=== PATIENT | female | born 1965 | race Caucasian/White ===

== ENCOUNTER 2019-11-04 21:49 | Emergency (ER) | payer MEDICARE, OTHER ==
[~2019-11-04] VITALS: Ht 147.3 cm; Wt 47.6 kg
[~2019-11-04 21:49] MED LIST: ACET-1156 PO; ATOR10TA; CARB200T4 PO; CLIN300C8 PO; DOCU100C8 PO; ERGO8288; FLUT1SPR21; KETO2CRE4 TOP; LACO150T PO; LEVE750T15; MEGE1SUS5 PO; MULT-20 PO; NAPR500T31 PO; NUTR-709; OME20T PO; POTA10TA79 PO; RISP0.2512 PO; SACC250C PO; TORS10TA12 PO; ZONI100C16 PO; [UNRECOGNIZED DRUG - CODE]; [UNRECOGNIZED DRUG - CODE]; [UNRECOGNIZED DRUG - CODE]; [UNRECOGNIZED DRUG - CODE] EX; [UNRECOGNIZED DRUG - CODE] OR
[2019-11-05 01:48] VITALS: BP 128/80
== END 2019-11-05 02:39 | disposition home or self-care (01) ==
LOC: ER 21:51
DX: S00.12XA Contusion of left eyelid and periocular area, initial encounter (principal); K21.9 Gastro-esophageal reflux disease without esophagitis; E78.5 Hyperlipidemia, unspecified; Z79.899 Other long term (current) drug therapy; Y04.0XXA Assault by unarmed brawl or fight, initial encounter; Y93.89 Activity, other specified; Y92.098 Other place in other non-institutional residence as the place of occurrence of the external cause; Y99.8 Other external cause status

== ENCOUNTER → 2022-05-10 | Outpatient (CLI) | payer MEDICARE, OTHER ==
[~2022-05-10] MED LIST changes: +DOCU100C10 PO; -DOCU100C8 PO; +POTA10TA32 PO; -POTA10TA79 PO; -ZONI100C16 PO; +ZONI100C18 PO
[2022-05-10 10:55] LABS: Basophils # (auto) 0 10 ^3/uL (0-0.2); Basophils % (auto) 0.6 % (0.0-2.0); Eosinophils # (auto) 0.1 10 ^3/uL (0-0.8); Eosinophils % (auto) 2.5 % (0.0-7.0); Hematocrit 46.3 % (36.0-46.0); Hemoglobin 14.9 g/dL (12.2-16.2); Lymphocytes # (auto) 1.2 10 ^3/uL (0.4-5.4); Mean Corpuscular Hemoglobin 31.4 pg (28.0-32.0); Mean Corpuscular Hgb Conc. 32.2 g/dL (32.0-36.0); Mean Corpuscular Volume 97.7 fL (80.0-100.0); Monocytes # (auto) 0.4 10 ^3/uL (0-1.3); Monocytes % (auto) 8.8 % (0.0-12.0); Neutrophils # (auto) 2.4 10 ^3/uL (1.6-8.6); Neutrophils % (auto) 59.1 % (37.0-80.0); Red Blood Cells 4.74 10^6/uL (4.0-5.20); Red Cell Distribution Width 13.5 % (11.8-14.3); White Blood Cell 4.1 10^3/uL (4.4-10.8)
[2022-05-10 11:46] LABS: Albumin 3.6 g/dL (3.4-5.0); Calcium 8.8 mg/dL (8.5-10.1); Potassium 3.8 mmol/L (3.5-5.1)
[2022-05-10 11:49] LABS: BUN/Creatinine Ratio 30.4; Bilirubin, Total 0.2 mg/dL (0.2-1.0); Total Protein 8.1 g/dL (6.4-8.2)
== END | disposition home or self-care (01) ==
LOC: LAB 10:36
PROVIDERS: ATTEND Internal Medicine Gastroenterology
DX: R10.9 Unspecified abdominal pain (principal); R19.4 Change in bowel habit
CPT/HCPCS: 36415; 80053; 85025

== ENCOUNTER 2022-12-29 11:09 | Day surgery (SDC) | payer MEDICARE, OTHER ==
[2022-12-28 14:42] LABS: Basophils # (auto) 0 10 ^3/uL (0-0.2); Basophils % (auto) 0.6 % (0.0-2.0); Eosinophils # (auto) 0.1 10 ^3/uL (0-0.8); Eosinophils % (auto) 2.7 % (0.0-7.0); Hematocrit 46.2 % (36.0-46.0); Hemoglobin 14.9 g/dL (12.2-16.2); Lymphocytes # (auto) 1.7 10 ^3/uL (0.4-5.4); Lymphocytes % (auto) 36.3 % (10.0-50.0); Mean Corpuscular Hgb Conc. 32.3 g/dL (32.0-36.0); Mean Corpuscular Volume 99.2 fL (80.0-100.0); Monocytes # (auto) 0.5 10 ^3/uL (0-1.3); Monocytes % (auto) 10.6 % (0.0-12.0); Neutrophils # (auto) 2.3 10 ^3/uL (1.6-8.6); Neutrophils % (auto) 49.8 % (37.0-80.0); Nucleated Red Blood Cells % 0.1 %; Red Blood Cells 4.65 10^6/uL (4.0-5.20); Red Cell Distribution Width 13.8 % (11.8-14.3); White Blood Cell 4.6 10^3/uL (4.4-10.8)
[2022-12-28 15:03] LABS: Albumin 3.3 g/dL (3.4-5.0); Calcium 8.9 mg/dL (8.5-10.1); Potassium 3.6 mmol/L (3.5-5.1)
[2022-12-28 15:05] LABS: INR 1.02 (0.9-1.15); Partial Thromboplastin Time 27.1 sec (24.6-33.4)
[2022-12-28 15:06] LABS: BUN/Creatinine Ratio 30.2 (10.0-20.0); Bilirubin, Total 0.1 mg/dL (0.2-1.0); Total Protein 7.7 g/dL (6.4-8.2)
[~2022-12-29] VITALS: Ht 170.2 cm; Wt 59.0 kg
[~2022-12-29 11:09] MED LIST changes: -ATOR10TA; +ATOR20TA50 PO; -CLIN300C8 PO; -DOCU100C10 PO; +DOCU283E2 PR; -ERGO8288; -LACO150T PO; +LACO200T PO; -MEGE1SUS5 PO; -NUTR-709; +OYST500T48 OR; +SULF800T8 PO; -[UNRECOGNIZED DRUG - CODE]; +[UNRECOGNIZED DRUG - CODE] OR
[2022-12-29] MEDS ORDERED: KETAMINE HCL 10 ML ONE (13:49)
[2022-12-29] MEDS ORDERED: DexAMETHasone SOD PHOS 10MG/1ML VIAL INJ ONE (13:49)
[2022-12-29] MEDS ORDERED: PROPOFOL 10 MG/ML 20 ML IV ONE (13:49)
[2022-12-29] MEDS ORDERED: MIDAZOLAM HCL 2MG/2ML 2ml VIAL (1mg/ml) ONE (13:49)
[2022-12-29 15:44] VITALS: BP 121/71
== END 2022-12-29 15:55 | disposition home or self-care (01) ==
LOC: GI 11:09
PROVIDERS: ATTEND Internal Medicine Gastroenterology
DX: K62.5 Hemorrhage of anus and rectum (principal); K63.89 Other specified diseases of intestine; K64.8 Other hemorrhoids; E78.5 Hyperlipidemia, unspecified; K21.9 Gastro-esophageal reflux disease without esophagitis; Z79.899 Other long term (current) drug therapy
CPT/HCPCS: 36415; 45380; 80053; 85025; 85610; 85730; 88305; 88342; J1100; J2250; J2704; J7030

== ENCOUNTER 2023-04-20 16:01 | Inpatient (IN) | payer MEDICARE, OTHER ==
[~2023-04-20] VITALS: Ht 152.4 cm; Wt 74.5 kg
[~2023-04-20 16:01] MED LIST changes: -ACET-1156 PO; +ACET-1881 PO; +NAPR-746 PO; -NAPR500T31 PO; +OYST1TAB OR; -OYST500T48 OR; +POTA-228 PO; -POTA10TA32 PO; +SULF1TAB75 PO; -SULF800T8 PO
[2023-04-20 16:32] VITALS: PULSE 66; RESP 15; O2SAT 94
[2023-04-20 17:11] LABS: Albumin 3.1 g/dL (3.4-5.0); Calcium 8.7 mg/dL (8.5-10.1); Magnesium 2.5 mg/dL (1.6-2.6); Potassium 4.2 mmol/L (3.5-5.1)
[2023-04-20 17:13] LABS: Basophils # (auto) 0 10 ^3/uL (0-0.2); Basophils % (auto) 0.5 % (0.0-2.0); Eosinophils # (auto) 0.2 10 ^3/uL (0-0.8); Eosinophils % (auto) 4.3 % (0.0-7.0); Hemoglobin 14.5 g/dL (12.2-16.2); Lymphocytes # (auto) 1.4 10 ^3/uL (0.4-5.4); Lymphocytes % (auto) 35.3 % (10.0-50.0); Mean Corpuscular Hemoglobin 31.9 pg (28.0-32.0); Mean Corpuscular Hgb Conc. 32.2 g/dL (32.0-36.0); Mean Corpuscular Volume 98.8 fL (80.0-100.0); Monocytes # (auto) 0.4 10 ^3/uL (0-1.3); Monocytes % (auto) 10.5 % (0.0-12.0); Neutrophils % (auto) 49.4 % (37.0-80.0); Nucleated Red Blood Cells % 0.1 %; Red Blood Cells 4.56 10^6/uL (4.0-5.20); Red Cell Distribution Width 14.1 % (11.8-14.3)
[2023-04-20 17:14] LABS: BUN/Creatinine Ratio 27.3 (10.0-20.0); Bilirubin, Total 0.2 mg/dL (0.2-1.0); Total Protein 7.4 g/dL (6.4-8.2)
[2023-04-20 17:26] LABS: Urine Amorphous Crystal FEW /hpf (None Seen); Urine Bacteria FEW /hpf (None Seen); Urine Blood TRACE /uL (Negative); Urine Budding Yeast MODERATE /hpf (None Seen); Urine Clarity CLOUDY (Clear); Urine Color Yellow (Yellow); Urine Protein, UAD Negative (Negative); Urine Specific Gravity 1.015 (1.001-1.035); Urine Urobilinogen Normal (Negative); Urine WBC 41 /hpf (0 - 5); Urine WBC Clumps PRESENT /hpf (None Seen)
[2023-04-20] MEDS ORDERED: levoFLOXacin 750MG 150 ML IV ONE (18:00)
[2023-04-20 19:45] VITALS: PULSE 65; RESP 12; O2SAT 94
[2023-04-20] MEDS ORDERED: levoFLOXacin 250 MG TAB PO ONE (20:15)
[2023-04-20] MEDS ORDERED: ACETAMINOPHEN 325 MG TAB PO ONE (20:30)
[2023-04-20] MEDS ORDERED: DOCUSATE SOD 100 MG CAP PO PRN (21:00)
[2023-04-20] MEDS ORDERED: ACETAMINOPHEN 325 MG TAB PO PRN (21:00)
[2023-04-20] MEDS ORDERED: ONDANSETRON HCL 4 MG/2 ML VIAL IV PRN (21:00)
[2023-04-20] MEDS ORDERED: HYDROcodone-ACET 5/325MG TAB PO PRN (21:00)
[2023-04-20] MEDS ORDERED: ALBUTEROL SULF 2.5 MG/0.5ML(0.5%) NEB SOLN NEB PRN (21:00)
[2023-04-20 21:18] VITALS: BP 127/88; PULSE 68; RESP 16; TEMP 97.4; O2SAT 94
[2023-04-20] MEDS ORDERED: NITROGLYCERIN 0.4 MG SL TAB SL PRN (22:00)
[2023-04-20] MEDS ORDERED: MORPHINE SULFATE INJ 2 MG/ml SYRG IV PRN (22:00)
[2023-04-20] MEDS: SODIUM CHLOR 0.9% PF (SALINE LOCK) 10ML VIAL/SYR IV SCH (22:27)
[2023-04-20] MEDS: FAMOTIDINE (10MG/ML) 2ML VL IV SCH (22:44)
[2023-04-21] VITALS (12 sets, daily range): BP systolic 116–126; BP diastolic 72–77; PULSE 69–84; RESP 12–24; TEMP 97.6–97.9; O2SAT 90–97
[2023-04-21] MEDS ORDERED: cefTRIAXone SOD 1,000 MG VL IM ONE (03:00)
[2023-04-21] MEDS: ALBUTEROL SULF 2.5 MG/0.5ML(0.5%) NEB SOLN NEB PRN ×4 (03:48→23:35)
[2023-04-21] MEDS: SODIUM CHLOR 0.9% PF (SALINE LOCK) 10ML VIAL/SYR IV SCH ×3 (06:03→22:26)
[2023-04-21 06:30] LABS: Albumin 3.1 g/dL (3.4-5.0); Calcium 8.7 mg/dL (8.5-10.1); Potassium 3.8 mmol/L (3.5-5.1)
[2023-04-21 06:36] LABS: BUN/Creatinine Ratio 19.3 (10.0-20.0); Bilirubin, Total 0.3 mg/dL (0.2-1.0); Total Protein 7.3 g/dL (6.4-8.2)
[2023-04-21 07:49] LABS: COVID19 ANTIGEN SOFIA FIA NEGATIVE (NEGATIVE)
[2023-04-21 09:06] LABS: Basophils # (auto) 0 10 ^3/uL (0-0.2); Basophils % (auto) 0.5 % (0.0-2.0); Eosinophils # (auto) 0.3 10 ^3/uL (0-0.8); Eosinophils % (auto) 6.3 % (0.0-7.0); Hematocrit 41.9 % (36.0-46.0); Hemoglobin 13.7 g/dL (12.2-16.2); Lymphocytes # (auto) 1.4 10 ^3/uL (0.4-5.4); Mean Corpuscular Hgb Conc. 32.6 g/dL (32.0-36.0); Mean Corpuscular Volume 98.1 fL (80.0-100.0); Monocytes # (auto) 0.4 10 ^3/uL (0-1.3); Monocytes % (auto) 10.6 % (0.0-12.0); Neutrophils # (auto) 1.9 10 ^3/uL (1.6-8.6); Neutrophils % (auto) 47.6 % (37.0-80.0); Nucleated Red Blood Cells % 0.4 %; Red Blood Cells 4.27 10^6/uL (4.0-5.20)
[2023-04-21] MEDS: cefTRIAXone 1GM/50ML D5W 50 ML IV SCH (09:36)
[2023-04-21] MEDS: FUROSEMIDE 20 MG/2 ML VIAL IV SCH (09:52)
[2023-04-21] MEDS: FAMOTIDINE (10MG/ML) 2ML VL IV SCH ×2 (09:52→22:25)
[2023-04-21] MEDS: DOXYCYCLINE 100MG/250ML 250 ML IV SCH ×2 (11:00→22:25)
[2023-04-21] MEDS ORDERED: MORPHINE SULFATE INJ 2 MG/ml SYRG IV PRN (13:45)
[2023-04-21] MEDS: ACETYLCYSTEINE 20%(200MG/ML) SOL 4ML NEB SCH ×2 (14:43→23:35)
[2023-04-22] VITALS (8 sets, daily range): BP systolic 110; BP diastolic 71; PULSE 70–88; RESP 17–20; TEMP 97.8; O2SAT 85–98
[2023-04-22] MEDS: SODIUM CHLOR 0.9% PF (SALINE LOCK) 10ML VIAL/SYR IV SCH ×3 (06:09→23:07)
[2023-04-22] MEDS: ACETYLCYSTEINE 20%(200MG/ML) SOL 4ML NEB SCH ×3 (07:10→22:28)
[2023-04-22] MEDS: cefTRIAXone 1GM/50ML D5W 50 ML IV SCH (08:24)
[2023-04-22] MEDS: ALBUTEROL SULF 2.5 MG/0.5ML(0.5%) NEB SOLN NEB PRN ×3 (09:49→22:28)
[2023-04-22] MEDS: LORazepam 2MG/ML-1ML VIAL IV PRN (10:04)
[2023-04-22] MEDS: FAMOTIDINE (10MG/ML) 2ML VL IV SCH ×2 (11:50→23:07)
[2023-04-22] MEDS: DOXYCYCLINE 100MG/250ML 250 ML IV SCH ×2 (11:50→23:50)
[2023-04-22] MEDS: FUROSEMIDE 20 MG/2 ML VIAL IV SCH (11:50)
[2023-04-23] VITALS (10 sets, daily range): BP systolic 97–125; BP diastolic 65–86; PULSE 62–102; RESP 14–28; TEMP 97.5–99.6; O2SAT 90–100
[2023-04-23] MEDS: SODIUM CHLOR 0.9% PF (SALINE LOCK) 10ML VIAL/SYR IV SCH ×3 (06:29→22:00)
[2023-04-23] MEDS: ALBUTEROL SULF 2.5 MG/0.5ML(0.5%) NEB SOLN NEB PRN ×2 (06:47→22:40)
[2023-04-23] MEDS: ACETYLCYSTEINE 20%(200MG/ML) SOL 4ML NEB SCH ×3 (06:47→22:40)
[2023-04-23 08:27] LABS: Folate (Folic Acid) 23.38 ng/mL (5.38-24)
[2023-04-23] MEDS: LORazepam 2MG/ML-1ML VIAL IV PRN ×3 (11:00→17:17)
[2023-04-23] MEDS: FUROSEMIDE 20 MG/2 ML VIAL IV SCH (12:08)
[2023-04-23] MEDS: FAMOTIDINE (10MG/ML) 2ML VL IV SCH ×2 (12:08→21:44)
[2023-04-23] MEDS: cefTRIAXone 1GM/50ML D5W 50 ML IV SCH (12:35)
[2023-04-23] MEDS: DOXYCYCLINE 100MG/250ML 250 ML IV SCH ×2 (13:17→22:01)
[2023-04-23 13:20] LABS: Basophils # (auto) 0 10 ^3/uL (0-0.2); Basophils % (auto) 0.3 % (0.0-2.0); Eosinophils # (auto) 0.2 10 ^3/uL (0-0.8); Eosinophils % (auto) 3.3 % (0.0-7.0); Hemoglobin 15.4 g/dL (12.2-16.2); Lymphocytes # (auto) 0.9 10 ^3/uL (0.4-5.4); Lymphocytes % (auto) 15.5 % (10.0-50.0); Mean Corpuscular Hemoglobin 32.1 pg (28.0-32.0); Mean Corpuscular Volume 100.3 fL (80.0-100.0); Monocytes # (auto) 0.5 10 ^3/uL (0-1.3); Monocytes % (auto) 8.7 % (0.0-12.0); Neutrophils % (auto) 72.2 % (37.0-80.0); Red Blood Cells 4.79 10^6/uL (4.0-5.20); White Blood Cell 5.6 10^3/uL (4.4-10.8)
[2023-04-23 13:40] LABS: Albumin 3.2 g/dL (3.4-5.0); Calcium 8.8 mg/dL (8.5-10.1); Magnesium 2.2 mg/dL (1.6-2.6); Potassium 3.7 mmol/L (3.5-5.1)
[2023-04-23 13:43] LABS: BUN/Creatinine Ratio 28.1 (10.0-20.0)
[2023-04-23 13:45] LABS: Bilirubin, Total 0.1 mg/dL (0.2-1.0); Total Protein 7.7 g/dL (6.4-8.2)
[2023-04-23] MEDS ORDERED: LORazepam 2MG/ML-1ML VIAL IV ONE (18:00)
[2023-04-23] MEDS: LACOSAMIDE 200 MG in SODIUM CHL 0.9% 100 ML IV SCH (20:27)
[2023-04-23] MEDS: carBAMazepine 200 MG TAB PO SCH (22:00)
[2023-04-23] MEDS ORDERED: PATIENTS OWN MEDICATION IV SCH (22:00)
[2023-04-24] VITALS (12 sets, daily range): BP systolic 111–127; BP diastolic 61–76; PULSE 71–88; RESP 16–20; TEMP 98.7–99.1; O2SAT 92–98
[2023-04-24] MEDS: SODIUM CHLOR 0.9% PF (SALINE LOCK) 10ML VIAL/SYR IV SCH ×3 (06:00→20:37)
[2023-04-24] MEDS: LACOSAMIDE 200 MG in SODIUM CHL 0.9% 100 ML IV SCH ×2 (07:33→20:35)
[2023-04-24] MEDS: ACETYLCYSTEINE 20%(200MG/ML) SOL 4ML NEB SCH ×2 (07:55→13:42)
[2023-04-24] MEDS: ALBUTEROL SULF 2.5 MG/0.5ML(0.5%) NEB SOLN NEB PRN ×2 (07:55→13:42)
[2023-04-24] MEDS: FUROSEMIDE 20 MG/2 ML VIAL IV SCH (09:03)
[2023-04-24] MEDS: FAMOTIDINE (10MG/ML) 2ML VL IV SCH ×2 (09:04→20:25)
[2023-04-24] MEDS: carBAMazepine 200 MG TAB PO SCH ×2 (09:26→19:45)
[2023-04-24] MEDS: cefTRIAXone 1GM/50ML D5W 50 ML IV SCH (09:48)
[2023-04-24] MEDS: DOXYCYCLINE 100MG/250ML 250 ML IV SCH ×2 (10:50→20:25)
[2023-04-25] VITALS (8 sets, daily range): BP systolic 107–132; BP diastolic 68–76; PULSE 68–90; RESP 15–20; TEMP 98.2–99.5; O2SAT 94–97
[2023-04-25 05:56] LABS: Basophils # (auto) 0 10 ^3/uL (0-0.2); Basophils % (auto) 0.3 % (0.0-2.0); Eosinophils # (auto) 0 10 ^3/uL (0-0.8); Eosinophils % (auto) 0.3 % (0.0-7.0); Hematocrit 42.3 % (36.0-46.0); Lymphocytes # (auto) 1.5 10 ^3/uL (0.4-5.4); Lymphocytes % (auto) 22.4 % (10.0-50.0); Mean Corpuscular Hemoglobin 32.2 pg (28.0-32.0); Mean Corpuscular Hgb Conc. 33.1 g/dL (32.0-36.0); Mean Corpuscular Volume 97.4 fL (80.0-100.0); Monocytes # (auto) 0.9 10 ^3/uL (0-1.3); Monocytes % (auto) 13.8 % (0.0-12.0); Neutrophils # (auto) 4.1 10 ^3/uL (1.6-8.6); Neutrophils % (auto) 63.2 % (37.0-80.0); Nucleated Red Blood Cells % 0.1 %; Red Blood Cells 4.34 10^6/uL (4.0-5.20); Red Cell Distribution Width 13.8 % (11.8-14.3); White Blood Cell 6.5 10^3/uL (4.4-10.8)
[2023-04-25] MEDS: SODIUM CHLOR 0.9% PF (SALINE LOCK) 10ML VIAL/SYR IV SCH ×3 (06:00→21:51)
[2023-04-25 06:14] LABS: Calcium 8.8 mg/dL (8.5-10.1)
[2023-04-25 06:18] LABS: BUN/Creatinine Ratio 28.1 (10.0-20.0); Bilirubin, Total 0.3 mg/dL (0.2-1.0); Total Protein 7.2 g/dL (6.4-8.2)
[2023-04-25 06:42] LABS: Potassium 2.9 mmol/L (3.5-5.1)
[2023-04-25] MEDS ORDERED: POTASSIUM EFFERVESENT TAB 25 MEQ PO ONE (07:30)
[2023-04-25] MEDS: cefTRIAXone 1GM/50ML D5W 50 ML IV SCH (08:07)
[2023-04-25] MEDS: LACOSAMIDE 50 MG TAB PO SCH ×2 (10:31→21:55)
[2023-04-25] MEDS: carBAMazepine 200 MG TAB PO SCH ×2 (10:32→21:59)
[2023-04-25] MEDS: DOXYCYCLINE 100MG/250ML 250 ML IV SCH ×2 (10:33→21:48)
[2023-04-25] MEDS: FUROSEMIDE 20 MG/2 ML VIAL IV SCH (10:33)
[2023-04-25] MEDS: FAMOTIDINE (10MG/ML) 2ML VL IV SCH ×2 (10:33→21:48)
[2023-04-25] MEDS: levETIRAcetam 500 MG TAB PO SCH ×2 (10:40→21:59)
[2023-04-26] VITALS (13 sets, daily range): BP systolic 104–128; BP diastolic 65–84; PULSE 69–91; RESP 16–21; TEMP 97.2–98.1; O2SAT 86–98
[2023-04-26] MEDS: SODIUM CHLOR 0.9% PF (SALINE LOCK) 10ML VIAL/SYR IV SCH ×3 (06:23→21:18)
[2023-04-26 06:34] LABS: BUN/Creatinine Ratio 30.4 (10.0-20.0); Calcium 8.6 mg/dL (8.5-10.1); Magnesium 2.2 mg/dL (1.6-2.6); Potassium 3.3 mmol/L (3.5-5.1)
[2023-04-26] MEDS: cefTRIAXone 1GM/50ML D5W 50 ML IV SCH (09:19)
[2023-04-26] MEDS: FAMOTIDINE (10MG/ML) 2ML VL IV SCH ×2 (09:20→21:17)
[2023-04-26] MEDS: DOXYCYCLINE 100MG/250ML 250 ML IV SCH ×2 (09:22→21:18)
[2023-04-26] MEDS: carBAMazepine 200 MG TAB PO SCH ×2 (09:22→21:19)
[2023-04-26] MEDS: levETIRAcetam 500 MG TAB PO SCH ×2 (09:22→21:19)
[2023-04-26] MEDS: FUROSEMIDE 20 MG/2 ML VIAL IV SCH (09:22)
[2023-04-26] MEDS ORDERED: LACO200T PO ×3 (09:53→09:56)
[2023-04-26] MEDS ORDERED: NITR-52 PO (09:56)
[2023-04-26] MEDS ORDERED: CARB200T5 PO (09:56)
[2023-04-26] MEDS ORDERED: LEVE500T40 PO (09:56)
[2023-04-26] MEDS ORDERED: DOXY1CAP57 PO (09:56)
[2023-04-26] MEDS: LACOSAMIDE 50 MG TAB PO SCH ×2 (10:50→21:20)
[2023-04-26 14:51] LABS: Base Excess 9.4 mmol/L (-2.0-2.0)
[2023-04-26] MEDS ORDERED: POTASSIUM CHL 20 Meq TABLET PO ONE (15:30)
[2023-04-27 04:57] VITALS: BP 122/82; PULSE 82; RESP 20; TEMP 98.1; O2SAT 97
[2023-04-27] MEDS: SODIUM CHLOR 0.9% PF (SALINE LOCK) 10ML VIAL/SYR IV SCH ×2 (06:25→11:25)
[2023-04-27 07:16] VITALS: O2SAT 96
[2023-04-27 08:30] VITALS: RESP 18
[2023-04-27 09:00] VITALS: BP 133/72; PULSE 75; RESP 18; TEMP 98.6; O2SAT 95
[2023-04-27 10:30] VITALS: O2SAT 95
[2023-04-27] MEDS: levETIRAcetam 500 MG TAB PO SCH (11:03)
[2023-04-27] MEDS: carBAMazepine 200 MG TAB PO SCH (11:04)
[2023-04-27] MEDS: LACOSAMIDE 50 MG TAB PO SCH (11:06)
[2023-04-27] MEDS: cefTRIAXone 1GM/50ML D5W 50 ML IV SCH (11:24)
[2023-04-27] MEDS: FAMOTIDINE (10MG/ML) 2ML VL IV SCH (11:24)
[2023-04-27] MEDS: FUROSEMIDE 20 MG/2 ML VIAL IV SCH (11:24)
[2023-04-27] MEDS: DOXYCYCLINE 100MG/250ML 250 ML IV SCH (11:25)
[2023-04-27 13:00] VITALS: BP 127/74; PULSE 70; RESP 18; TEMP 98; O2SAT 94
[2023-04-27 17:07] LABS: COVID19 ANTIGEN SOFIA FIA NEGATIVE (NEGATIVE)
== END 2023-04-27 17:00 | disposition home or self-care (01) | DRG 177 ==
LOC: ER 16:01 → EDBD 16:01 → EDUNIT# 16:01 → OVERFLOW 21:54 → WEST WING 04-21 10:30
PROVIDERS: ADMIT Nurse Practitioner Acute Care; ATTEND Family Medicine
DX: J69.0 Pneumonitis due to inhalation of food and vomit (principal); J96.20 Acute and chronic respiratory failure, unspecified whether with hypoxia or hypercapnia; J81.1 Chronic pulmonary edema; E44.1 Mild protein-calorie malnutrition; N39.0 Urinary tract infection, site not specified; R62.7 Adult failure to thrive; Z66 Do not resuscitate; Z68.32 Body mass index [BMI] 32.0-32.9, adult; K21.9 Gastro-esophageal reflux disease without esophagitis; E78.00 Pure hypercholesterolemia, unspecified; E66.9 Obesity, unspecified; J43.9 Emphysema, unspecified; E86.0 Dehydration; F25.9 Schizoaffective disorder, unspecified; F79 Unspecified intellectual disabilities; Z20.822 Contact with and (suspected) exposure to COVID-19; I10 Essential (primary) hypertension; G40.409 Other generalized epilepsy and epileptic syndromes, not intractable, without status epilepticus; G80.9 Cerebral palsy, unspecified; Z79.899 Other long term (current) drug therapy; B96.20 Unspecified Escherichia coli [E. coli] as the cause of diseases classified elsewhere
CPT/HCPCS: 36415; 36600; 70450; 71045; 71250; 80048; 80053; 81001; 82607; 82746; 82805; 83036; 83605; 83735; 83880; 84443; 84484; 85007; 85025; 85027; 87040; 87081; 87086; 87088; 87186; 87426; 94640; 94667; 94668; 95819; 97110; 97163; 97530; C9254; G0378; J0696; J1956; J2405; J3490; J7060